=== PATIENT | male | born 1975 | race Caucasian/White ===

== ENCOUNTER 2024-04-06 23:36 | Emergency (ER) | payer BC ==
[~2024-04-06] VITALS: Ht 177.8 cm; Wt 121.1 kg
[2024-04-07] MEDS ORDERED: AUGMENTIN 500-1 EACH PO
[2024-04-07] MEDS ORDERED: BACITRACIN ZINC 0.9GM TP ONE
[2024-04-07] MEDS ORDERED: AMOXICILLIN/CLAVULANATE K 875 MG TAB PO ONE
[2024-04-07] MEDS ORDERED: LIDOCAINE HCL 1% LOCAL INJ 20 ML VIAL INJ ONE
[2024-04-07] MEDS ORDERED: MEDROL4 M2 PO (00:07)
[2024-04-07 00:37] LABS: BASOPHILS % 0.3 % (0.0-1.0); EOSINOPHILS # (AUTO) 0.1 (0.0-0.4); EOSINOPHILS % 1.1 % (0.0-6.0); HEMATOCRIT 41.3 % (38.2-49.6); HEMOGLOBIN 14.2 g/dL (14.0-18.0); LYMPHOCYTES # (AUTO) 1.1 (1.0-3.2); LYMPHOCYTES % 8.5 % (18.0-39.1); MEAN CORPUSCULAR HEMOGLOBIN 30.1 pg (28-32); MEAN CORPUSCULAR HGB CONC 34.4 g/dL (31-35); MEAN CORPUSCULAR VOLUME 87.5 fL (81-99); MONOCYTES # (AUTO) 0.9 (0.2-0.8); MONOCYTES % 7.1 % (4.4-11.3); NEUTROPHILS # (AUTO) 10.4 (2.1-6.9); NEUTROPHILS % 82.2 % (38.7-80.0); PLATELET COUNT 248 x10e3/uL (140-360); RED BLOOD COUNT 4.72 x10e6/uL (4.3-5.7); RED CELL DISTRIBUTION WIDTH 11.9 % (11.7-14.4); WHITE BLOOD COUNT 12.62 x10e3/uL (4.8-10.8)
[2024-04-07 00:52] LABS: ALBUMIN 3.2 g/dL (3.5-5.0); ALBUMIN/GLOBULIN RATIO 0.9 (0.8-2.0); BILIRUBIN,TOTAL 0.5 mg/dL (0.2-1.2); CALCIUM 9.7 mg/dL (8.4-10.2); CREATININE, SERUM 1.24 mg/dL (0.72-1.25); POTASSIUM 4.6 mmol/L (3.5-5.1); TOTAL PROTEIN 6.9 g/dL (6.5-8.1)
[2024-04-07 01:00] LABS: ANION GAP 2.6 mmol/L (8-16)
[2024-04-07] MEDS ORDERED: BACTRIM DS TAB1 EACH PO (01:44)
[2024-04-07] MEDS: CEFTRIAXONE 1 GM VIAL IM ONE (01:47)
[2024-04-07] MEDS: TRIMETHOPRIM/SULFAMETHOXAZOLE 160-800 MG TAB PO ONE (01:48)
[2024-04-07] MEDS: SODIUM CHLORIDE 0.9% 1000ML 1,000 ML IV ONE (01:48)
[2024-04-07] MEDS: ACETAMINOPHEN 325 MG TAB PO ONE (01:49)
[2024-04-07] MEDS: LIDOCAINE HCL 1% 2 ML AMP INJ ONE (01:50)
[2024-04-07] MEDS ORDERED: ULTRAM 50MG50 MG PO (02:51)
[2024-04-07 02:54] VITALS: PULSE 101; RESP 18; TEMP 98.9; O2SAT 95
== END 2024-04-07 03:00 | disposition home or self-care (01) ==
LOC: FSED 23:39
DX: L02.215 Cutaneous abscess of perineum (principal); L05.01 Pilonidal cyst with abscess; R73.9 Hyperglycemia, unspecified
CPT/HCPCS: 10060; 10080; 36415; 80053 ×2; 83605; 85025 ×2; 87040; 87071; 87186; 87205; 99284; J0696; J7030; J2001

== ENCOUNTER 2024-04-09 10:32 | Emergency (ER) | payer BC ==
[~2024-04-09] VITALS: Ht 175.3 cm; Wt 121.3 kg
[~2024-04-09 10:32] MED LIST: AUGMENTIN 500-1 EACH PO; BACTRIM DS TAB1 EACH PO; MEDROL4 M2 PO; ULTRAM 50MG50 MG PO
[2024-04-09 11:36] VITALS: PULSE 70; RESP 16; TEMP 98.1; O2SAT 98
== END 2024-04-09 11:36 | disposition home or self-care (01) ==
LOC: FSED 10:38
DX: Z48.01 Encounter for change or removal of surgical wound dressing (principal); B95.62 Methicillin resistant Staphylococcus aureus infection as the cause of diseases classified elsewhere; E11.65 Type 2 diabetes mellitus with hyperglycemia
CPT/HCPCS: 82948; 99283